=== PATIENT | female | born 1950 | race Caucasian/White ===

== ENCOUNTER 2021-10-13 19:52 | Emergency (ER) | payer OTHER ==
[~2021-10-13] VITALS: Ht 160 cm; Wt 45.4 kg
[~2021-10-13 19:52] MED LIST: ASPI81CH PO; Chewable Multi1 EAC1 PO; IBUP400 PO
[2021-10-13] MEDS ORDERED: OXYC10TA19 PO (21:23)
[2021-10-13] MEDS ORDERED: CEPH500 (21:24)
== END 2021-10-14 00:09 | disposition home or self-care (01) ==
LOC: ER 19:52
DX: G89.18 Other acute postprocedural pain (principal); Z79.82 Long term (current) use of aspirin
CPT/HCPCS: 93971; 99284-25

== ENCOUNTER → 2022-05-04 | Outpatient (CLI) | payer OTHER ==
[~2022-05-04] MED LIST changes: +CEPH500; +OXYC10TA19 PO
[2022-05-04 17:48] LABS: U Amphetamine Screen Not Detected; U Barbituate Screen Not Detected; U Benzodiazapine Screen Not Detected; U Buprenorphine Screen Not Detected; U Cannabinoids Screen Not Detected; U Cocaine Screen Not Detected; U Methadone Screen Not Detected; U Methamphetamine Screen Not Detected; U Opiates Screen Not Detected; U Oxycodone Screen Not Detected; U Phencyclidine Screen Not Detected; U Propoxyphene Screen Not Detected
== END | disposition home or self-care (01) ==
LOC: LAB 16:00 → LAB SHORT 16:00
PROVIDERS: Physician Assistant
DX: Z51.81 Encounter for therapeutic drug level monitoring (principal); Z79.899 Other long term (current) drug therapy

== ENCOUNTER → 2023-03-04 | Outpatient (CLI) | payer OTHER ==
[2023-03-04 20:29] LABS: Creatinine Urine 77.9 mg/dL (27.00-270.00)
[2023-03-04 20:45] LABS: Calcium, Urine 6.3 mg/dL (< 17.5)
== END | disposition home or self-care (01) ==
LOC: LAB 06:30 → LAB SHORT 06:30
PROVIDERS: Internal Medicine Endocrinology, Diabetes & Metabolism
DX: M81.0 Age-related osteoporosis without current pathological fracture (principal)
CPT/HCPCS: 82340; 82570

== ENCOUNTER 2024-01-18 12:36 | Day surgery (SDC) | payer OTHER ==
[~2024-01-18] VITALS: Ht 160 cm; Wt 47.1 kg
[~2024-01-18 12:36] MED LIST changes: +Balanced Salt Epinephrine Irrigation Solution 500 mL IR SCH; +Lidocaine HCl/Pf 1% 5 ML VIAL XX SCH; +Moxifloxacin HCL 0.5 MG/0.1 ML 0.4MLSYR RIGHTEYE SCH; +NS 500 ML IV ONE; +PHENYLEPHRINE\\TROPICAMIDE\\TETRACAINE OPHTHALMIC DILATING SOLN RIGHTEYE PRN; +Povidone-Iodine 450 DROP/30 ML Solution ONE; +Povidone-Iodine 450 DROP/30 ML Solution RIGHTEYE SCH; +Tetracaine HCl/Pf 0.5% Opth Soln 4 ml ONE
[2024-01-18] MEDS ORDERED: NS 500 ML IV ONE (12:59)
[2024-01-18] MEDS ORDERED: Midazolam HCl 1MG / ML 2ML Vial ONE (13:15)
[2024-01-18 13:46] VITALS: BP 102/68
== END 2024-01-18 13:56 | disposition home or self-care (01) ==
LOC: ORSCSDS 12:36
PROVIDERS: Student in an Organized Health Care Education/Training Program
PROC: 08RJ3JZ Replacement of Right Lens with Synthetic Substitute, Percutaneous Approach (ICD-10-PCS; principal; 2024-01-18 13:45)
DX: H25.813 Combined forms of age-related cataract, bilateral (principal); Z79.82 Long term (current) use of aspirin
CPT/HCPCS: J2250; J7040; V2632

== ENCOUNTER 2024-01-25 11:14 | Day surgery (SDC) | payer OTHER ==
[~2024-01-25] VITALS: Ht 160 cm; Wt 47.4 kg
[~2024-01-25 11:14] MED LIST changes: +Moxifloxacin HCL 0.5 MG/0.1 ML 0.4MLSYR LEFTEYE SCH; -Moxifloxacin HCL 0.5 MG/0.1 ML 0.4MLSYR RIGHTEYE SCH; +PHENYLEPHRINE\\TROPICAMIDE\\TETRACAINE OPHTHALMIC DILATING SOLN LEFTEYE PRN; -PHENYLEPHRINE\\TROPICAMIDE\\TETRACAINE OPHTHALMIC DILATING SOLN RIGHTEYE PRN; +Povidone-Iodine 450 DROP/30 ML Solution LEFTEYE SCH; -Povidone-Iodine 450 DROP/30 ML Solution RIGHTEYE SCH
[2024-01-25] MEDS ORDERED: Midazolam HCl 1MG / ML 2ML Vial ONE (11:16)
[2024-01-25] MEDS ORDERED: FentaNYL Citrate 50 MCG/ML 2 ML Injection ONE (11:16)
[2024-01-25] MEDS ORDERED: NS 500 ML IV ONE ×2 (11:41→11:54)
[2024-01-25 12:17] VITALS: BP 101/70
== END 2024-01-25 12:17 | disposition home or self-care (01) ==
LOC: ORSCSDS 11:14
PROVIDERS: Student in an Organized Health Care Education/Training Program
PROC: 08RK3JZ Replacement of Left Lens with Synthetic Substitute, Percutaneous Approach (ICD-10-PCS; principal; 2024-01-25 12:30)
DX: H25.812 Combined forms of age-related cataract, left eye (principal); Z96.1 Presence of intraocular lens; Z79.82 Long term (current) use of aspirin
CPT/HCPCS: J2250; J3010; J7040; V2632